=== PATIENT | female | born 1930 | race Caucasian/White ===

== ENCOUNTER 2021-11-19 17:38 | Inpatient (IN) | payer MEDICARE, MEDICAID ==
[~2021-11-19] VITALS: Ht 165.1 cm; Wt 58.8 kg
[~2021-11-19 17:38] MED LIST: DIGITEK PO; DONETAB6 PO; HYDR-4833 PO; METF-370 PO; METO2.5T PO; POTA10TA51 PO; SPIR25TA8 PO; WARF3TAB22 PO
[2021-11-19] MEDS ORDERED: SUCCINYLCHOLINE CHLORIDE 20 MG/ML 10ML VIAL IV ONE ×2 (17:47→18:00)
[2021-11-19] MEDS ORDERED: MIDAZOLAM DRIP 50 mg/50mL 50 ML IV ONE (17:47)
[2021-11-19] MEDS ORDERED: MIDAZOLAM HCL 10 ML IV ONE (17:49)
[2021-11-19] MEDS: MIDAZOLAM DRIP 50 mg/50mL 50 ML IV SCH (17:59)
[2021-11-19] MEDS ORDERED: MIDAZOLAM HCL 5 MG/ML-1ML VIAL IV ONE (18:00)
[2021-11-19] MEDS: NOREPINEPHRINE 8 MG/250ML KIT 250 ML IV SCH (18:02)
[2021-11-19] MEDS ORDERED: NOREPINEPHRINE 8 MG/250ML KIT 250 ML IV ONE (18:03)
[2021-11-19 18:15] VITALS: BP 51/32
[2021-11-19] MEDS ORDERED: PIPERACILLIN-TAZOB 3.375GM 100 ML IV ONE (19:00)
[2021-11-19] MEDS ORDERED: HYDROCORTISONE SOD SUCC 100 MG/2ML INJ VIAL IV ONE (19:00)
[2021-11-19] MEDS ORDERED: VANCOMYCIN PER PHARMACY 0 MG IV SCH (19:00)
[2021-11-19 19:32] LABS: Urine Bacteria NONE SEEN /hpf (None Seen); Urine Blood Negative /uL (Negative); Urine Hyaline Cast FEW /lpf (0 - 2); Urine Specific Gravity 1.019 (1.001-1.035); Urine WBC 1 /hpf (0 - 5)
[2021-11-19 19:50] LABS: Basophils # (auto) 0.2 10 ^3/uL (0-0.2); Basophils % (auto) 1.8 % (0.0-2.0); Eosinophils # (auto) 0 10 ^3/uL (0-0.8); Eosinophils % (auto) 0.4 % (0.0-7.0); Lymphocytes # (auto) 0.6 10 ^3/uL (0.4-5.4); Lymphocytes % (auto) 5.2 % (10.0-50.0); Mean Corpuscular Hemoglobin 31.3 pg (28.0-32.0); Mean Corpuscular Hgb Conc. 32.7 g/dL (32.0-36.0); Mean Corpuscular Volume 95.5 fL (80.0-100.0); Monocytes # (auto) 0.6 10 ^3/uL (0-1.3); Monocytes % (auto) 5.1 % (0.0-12.0); Neutrophils % (auto) 87.5 % (37.0-80.0); Nucleated Red Blood Cells % 0.1 %; Red Blood Cells 5.12 10^6/uL (4.0-5.20); Red Cell Distribution Width 15.5 % (11.8-14.3); White Blood Cell 11.4 10^3/uL (4.4-10.8)
[2021-11-19] MEDS ORDERED: VANCOMYCIN 1GM/250ML 250 ML IV ONE (20:00)
[2021-11-19 20:03] VITALS: BP 118/79
[2021-11-19 20:03] LABS: INR 1.2 (0.9-1.15); Partial Thromboplastin Time 20.2 sec (23.6-33.0)
[2021-11-19 20:07] LABS: Albumin 2.5 g/dL (3.4-5.0); BUN/Creatinine Ratio 43.8; Calcium 9.9 mg/dL (8.5-10.1); Magnesium 3.3 mg/dL (1.6-2.6); Potassium 3.7 mmol/L (3.5-5.1)
[2021-11-19 20:10] LABS: Total Protein 7.4 g/dL (6.4-8.2)
[2021-11-19 20:13] LABS: Lactic Acid w/Reflex 2.5 mmol/L (0.4-2.0)
[2021-11-19] MEDS ORDERED: HEPARIN DRIP/D5W 100UNITS/ML 250 ML IV SCH (20:45)
[2021-11-19] MEDS ORDERED: HEPARIN SODIUM (PORCINE) 5000 UNITS/ML 1ML VIAL IV ONE (20:45)
[2021-11-19] MEDS ORDERED: SODIUM CHLORIDE 0.9% 500 ML IV ONE (21:00)
[2021-11-19] MEDS ORDERED: SODIUM CHLORIDE 0.9% 1,000 ML IV ONE (21:00)
[2021-11-19] MEDS ORDERED: ACETAMINOPHEN 325 MG TAB PO PRN (21:15)
[2021-11-19] MEDS ORDERED: ONDANSETRON HCL 4 MG/2 ML VIAL IV PRN (21:15)
[2021-11-19] MEDS ORDERED: NITROGLYCERIN 0.4 MG SL TAB SL PRN (21:15)
[2021-11-19] MEDS ORDERED: DEXTROSE (50%) 50ML SYRG IV PRN (21:15)
[2021-11-19] MEDS ORDERED: MORPHINE SULFATE INJ 2 MG/ml SYRG IV PRN (21:15)
[2021-11-19 21:19] LABS: Cholesterol 201 mg/dL (< 200); Triglycerides 237 mg/dL (< 150)
[2021-11-19 21:22] LABS: HDL Cholesterol 21 mg/dL (40-59); LDL Cholesterol 158 mg/dL (< 100)
[2021-11-19 21:51] VITALS: BP 137/78
[2021-11-19] MEDS: SOD CHL 0.45% 1,000 ML IV SCH (22:39)
[2021-11-20] VITALS (86 sets, daily range): BP systolic 76–131; BP diastolic 48–103
[2021-11-20] MEDS: ACCU-CHEK COMFORT CURVE STRIP VI SCH ×5 (00:28→23:57)
[2021-11-20] MEDS: InsuLIN REG 1unit/0.01ml Soln (100units/ml) SC SCH ×5 (00:28→23:58)
[2021-11-20] MEDS: MIDAZOLAM DRIP 50 mg/50mL 50 ML IV SCH (03:23)
[2021-11-20 05:39] LABS: Basophils # (auto) 0 10 ^3/uL (0-0.2); Basophils % (auto) 0.3 % (0.0-2.0); Eosinophils # (auto) 0 10 ^3/uL (0-0.8); Hematocrit 49.4 % (36.0-46.0); Lymphocytes # (auto) 0.5 10 ^3/uL (0.4-5.4); Lymphocytes % (auto) 3.7 % (10.0-50.0); Mean Corpuscular Hemoglobin 31.5 pg (28.0-32.0); Mean Corpuscular Hgb Conc. 32.4 g/dL (32.0-36.0); Mean Corpuscular Volume 97.3 fL (80.0-100.0); Monocytes # (auto) 0.4 10 ^3/uL (0-1.3); Monocytes % (auto) 2.9 % (0.0-12.0); Neutrophils # (auto) 12.4 10 ^3/uL (1.6-8.6); Neutrophils % (auto) 93.1 % (37.0-80.0); Nucleated Red Blood Cells % 0.2 %; Red Blood Cells 5.08 10^6/uL (4.0-5.20); Red Cell Distribution Width 15.3 % (11.8-14.3); White Blood Cell 13.3 10^3/uL (4.4-10.8)
[2021-11-20 05:55] LABS: Albumin 2.4 g/dL (3.4-5.0); BUN/Creatinine Ratio 41.3; Calcium 9.4 mg/dL (8.5-10.1); Potassium 3.5 mmol/L (3.5-5.1)
[2021-11-20 05:57] LABS: Bilirubin, Total 0.9 mg/dL (0.2-1.0); Total Protein 7.1 g/dL (6.4-8.2)
[2021-11-20 06:07] LABS: INR 1.27 (0.9-1.15)
[2021-11-20 06:15] LABS: Partial Thromboplastin Time 120.6 sec (23.6-33.0)
[2021-11-20] MEDS: NOREPINEPHRINE 8 MG/250ML KIT 250 ML IV SCH ×3 (07:44→23:01)
[2021-11-20] MEDS ORDERED: cefTRIAXone 1GM/50ML D5W 50 ML IV SCH (09:00)
[2021-11-20] MEDS: PANTOPRAZOLE 40 MG/10 ML VIAL INJ IV SCH (11:17)
[2021-11-20] MEDS: SOD CHL 0.45% 1,000 ML IV SCH (11:21)
[2021-11-20] MEDS: PIPERACILLIN-TAZOB 2.25GM 50 ML IV SCH ×3 (12:37→23:41)
[2021-11-20] MEDS: LACTULOSE 20Gm/30ML SOLN PO SCH ×3 (12:37→23:40)
[2021-11-21] VITALS (101 sets, daily range): BP systolic 75–154; BP diastolic 46–96
[2021-11-21] MEDS: NOREPINEPHRINE 8 MG/250ML KIT 250 ML IV SCH ×5 (00:22→22:33)
[2021-11-21] MEDS: SOD CHL 0.45% 1,000 ML IV SCH ×2 (01:56→16:09)
[2021-11-21] MEDS: LACTULOSE 20Gm/30ML SOLN PO SCH ×3 (05:07→17:29)
[2021-11-21] MEDS: ACCU-CHEK COMFORT CURVE STRIP VI SCH ×3 (05:08→17:08)
[2021-11-21] MEDS: PIPERACILLIN-TAZOB 2.25GM 50 ML IV SCH ×3 (05:08→17:29)
[2021-11-21] MEDS: InsuLIN REG 1unit/0.01ml Soln (100units/ml) SC SCH ×3 (05:09→17:09)
[2021-11-21 08:22] LABS: Basophils # (auto) 0.1 10 ^3/uL (0-0.2); Basophils % (auto) 0.5 % (0.0-2.0); Eosinophils # (auto) 0 10 ^3/uL (0-0.8); Eosinophils % (auto) 0.2 % (0.0-7.0); Hematocrit 45.1 % (36.0-46.0); Hemoglobin 14.8 g/dL (12.2-16.2); Lymphocytes % (auto) 7.7 % (10.0-50.0); Mean Corpuscular Hemoglobin 31.5 pg (28.0-32.0); Mean Corpuscular Hgb Conc. 32.8 g/dL (32.0-36.0); Mean Corpuscular Volume 95.9 fL (80.0-100.0); Monocytes # (auto) 0.8 10 ^3/uL (0-1.3); Monocytes % (auto) 6.1 % (0.0-12.0); Neutrophils # (auto) 10.7 10 ^3/uL (1.6-8.6); Neutrophils % (auto) 85.5 % (37.0-80.0); Nucleated Red Blood Cells % 0.2 %; Red Blood Cells 4.71 10^6/uL (4.0-5.20); Red Cell Distribution Width 15.1 % (11.8-14.3); White Blood Cell 12.5 10^3/uL (4.4-10.8)
[2021-11-21 08:41] LABS: Calcium 8.9 mg/dL (8.5-10.1); Potassium 3.1 mmol/L (3.5-5.1)
[2021-11-21 08:44] LABS: BUN/Creatinine Ratio 42.6
[2021-11-21] MEDS: PANTOPRAZOLE 40 MG/10 ML VIAL INJ IV SCH (09:19)
[2021-11-21] MEDS: ENOXAPARIN SOD 60 MG/0.6 ML SYRINGE SC SCH (09:20)
[2021-11-21] MEDS: MIDAZOLAM DRIP 50 mg/50mL 50 ML IV SCH (09:21)
[2021-11-21] MEDS: POTASSIUM CHL 20MEQ/100ML 100 ML IV SCH ×2 (10:13→12:10)
[2021-11-21] MEDS ORDERED: TPN PER PHARMACY 0 ML IV SCH (11:00)
[2021-11-21 11:19] LABS: Magnesium 2.7 mg/dL (1.6-2.6)
[2021-11-21 11:21] LABS: Phosphorus 5.1 mg/dL (2.5-4.90)
[2021-11-21] MEDS: VASOPRESSIN 50 UNITS in D5W 5% 247.5 ML IV SCH (14:15)
[2021-11-21] MEDS ORDERED: AMINO ACID INFUSION IN D10W 1,000 ML IV NR (20:00)
[2021-11-22] VITALS (108 sets, daily range): BP systolic 84–135; BP diastolic 48–99
[2021-11-22] MEDS ORDERED: DEXTROSE (50%) 50ML SYRG IV SCH
[2021-11-22] MEDS: PIPERACILLIN-TAZOB 2.25GM 50 ML IV SCH ×4 (00:04→22:14)
[2021-11-22] MEDS: LACTULOSE 20Gm/30ML SOLN PO SCH ×3 (00:04→11:17)
[2021-11-22] MEDS: ACCU-CHEK COMFORT CURVE STRIP VI SCH ×6 (00:16→17:16)
[2021-11-22] MEDS: InsuLIN REG 1unit/0.01ml Soln (100units/ml) SC SCH ×7 (00:22→17:17)
[2021-11-22] MEDS: NOREPINEPHRINE 8 MG/250ML KIT 250 ML IV SCH ×4 (03:34→22:04)
[2021-11-22 05:34] LABS: Basophils # (auto) 0.1 10 ^3/uL (0-0.2); Basophils % (auto) 1.4 % (0.0-2.0); Eosinophils # (auto) 0 10 ^3/uL (0-0.8); Eosinophils % (auto) 0.4 % (0.0-7.0); Hematocrit 42.3 % (36.0-46.0); Hemoglobin 14.1 g/dL (12.2-16.2); Lymphocytes # (auto) 0.7 10 ^3/uL (0.4-5.4); Lymphocytes % (auto) 8.4 % (10.0-50.0); Mean Corpuscular Hemoglobin 31.9 pg (28.0-32.0); Mean Corpuscular Hgb Conc. 33.4 g/dL (32.0-36.0); Mean Corpuscular Volume 95.3 fL (80.0-100.0); Monocytes # (auto) 0.5 10 ^3/uL (0-1.3); Monocytes % (auto) 5.4 % (0.0-12.0); Neutrophils # (auto) 7.1 10 ^3/uL (1.6-8.6); Neutrophils % (auto) 84.4 % (37.0-80.0); Nucleated Red Blood Cells % 0.1 %; Red Blood Cells 4.43 10^6/uL (4.0-5.20); Red Cell Distribution Width 15.2 % (11.8-14.3); White Blood Cell 8.4 10^3/uL (4.4-10.8)
[2021-11-22] MEDS: SOD CHL 0.45% 1,000 ML IV SCH (06:01)
[2021-11-22 06:27] LABS: Albumin 1.8 g/dL (3.4-5.0); Calcium 8.4 mg/dL (8.5-10.1); Magnesium 2.4 mg/dL (1.6-2.6)
[2021-11-22 06:33] LABS: BUN/Creatinine Ratio 39.9; Bilirubin, Total 0.7 mg/dL (0.2-1.0); Phosphorus 3.2 mg/dL (2.5-4.90)
[2021-11-22] MEDS: POTASSIUM CHL 20MEQ/100ML 100 ML IV SCH ×2 (07:33→09:12)
[2021-11-22] MEDS: PANTOPRAZOLE 40 MG/10 ML VIAL INJ IV SCH (09:11)
[2021-11-22] MEDS: ENOXAPARIN SOD 60 MG/0.6 ML SYRINGE SC SCH (09:12)
[2021-11-22] MEDS ORDERED: POTASSIUM CHL 20MEQ/100ML 100 ML IV ONE (12:00)
[2021-11-22] MEDS: FREE WATER GT SCH ×3 (13:52→22:14)
[2021-11-22] MEDS: VASOPRESSIN 50 UNITS in D5W 5% 247.5 ML IV SCH (14:15)
[2021-11-22] MEDS: MIDAZOLAM DRIP 50 mg/50mL 50 ML IV SCH (18:00)
[2021-11-22] MEDS ORDERED: TPN PER PHARMACY IV NR ×19 (20:00)
[2021-11-23] VITALS (101 sets, daily range): BP systolic 83–133; BP diastolic 53–100
[2021-11-23] MEDS: ACCU-CHEK COMFORT CURVE STRIP VI SCH ×4 (01:43→18:01)
[2021-11-23] MEDS: InsuLIN REG 1unit/0.01ml Soln (100units/ml) SC SCH ×4 (01:43→18:16)
[2021-11-23] MEDS: FREE WATER GT SCH ×6 (05:31→22:00)
[2021-11-23 06:34] LABS: Basophils # (auto) 0 10 ^3/uL (0-0.2); Basophils % (auto) 0.5 % (0.0-2.0); Eosinophils # (auto) 0.1 10 ^3/uL (0-0.8); Eosinophils % (auto) 0.8 % (0.0-7.0); Hematocrit 39.4 % (36.0-46.0); Hemoglobin 13.5 g/dL (12.2-16.2); Lymphocytes # (auto) 0.6 10 ^3/uL (0.4-5.4); Mean Corpuscular Hemoglobin 32.4 pg (28.0-32.0); Mean Corpuscular Hgb Conc. 34.3 g/dL (32.0-36.0); Mean Corpuscular Volume 94.5 fL (80.0-100.0); Monocytes # (auto) 0.3 10 ^3/uL (0-1.3); Monocytes % (auto) 4.1 % (0.0-12.0); Neutrophils # (auto) 6.9 10 ^3/uL (1.6-8.6); Neutrophils % (auto) 87.6 % (37.0-80.0); Nucleated Red Blood Cells % 0.1 %; Red Blood Cells 4.17 10^6/uL (4.0-5.20); Red Cell Distribution Width 15.1 % (11.8-14.3); White Blood Cell 7.8 10^3/uL (4.4-10.8)
[2021-11-23 06:45] LABS: Albumin 1.7 g/dL (3.4-5.0); BUN/Creatinine Ratio 45.7; Calcium 8.3 mg/dL (8.5-10.1); Magnesium 1.9 mg/dL (1.6-2.6)
[2021-11-23 06:47] LABS: Bilirubin, Total 0.6 mg/dL (0.2-1.0)
[2021-11-23 06:50] LABS: Potassium 2.8 mmol/L (3.5-5.1)
[2021-11-23] MEDS: PIPERACILLIN-TAZOB 2.25GM 50 ML IV SCH ×3 (07:53→20:46)
[2021-11-23] MEDS: SOD CHL 0.45% 1,000 ML IV SCH ×2 (07:53→11:00)
[2021-11-23] MEDS ORDERED: POTASSIUM CHL 20MEQ/100ML 100 ML IV SCH ×2 (09:00→13:00)
[2021-11-23] MEDS: PANTOPRAZOLE 40 MG/10 ML VIAL INJ IV SCH (09:24)
[2021-11-23] MEDS: POTASSIUM CHL 20MEQ/100ML 100 ML IV SCH ×2 (09:24→13:35)
[2021-11-23] MEDS: ENOXAPARIN SOD 60 MG/0.6 ML SYRINGE SC SCH (09:24)
[2021-11-23] MEDS: FLUCONAZOLE 200MG/100ML 100 ML IV SCH ×2 (09:52→12:36)
[2021-11-23] MEDS ORDERED: POTASSIUM CHLORIDE 40 MEQ in SOD CHL 0.45% 1,000 ML IV SCH (10:45)
[2021-11-23] MEDS: NOREPINEPHRINE 8 MG/250ML KIT 250 ML IV SCH (13:17)
[2021-11-23] MEDS: VASOPRESSIN 50 UNITS in D5W 5% 247.5 ML IV SCH (14:15)
[2021-11-23] MEDS ORDERED: POTASSIUM PHOSPHATE 22 MEQ in SODIUM CHL 0.9% 100 ML IV ONE (15:00)
[2021-11-23] MEDS: MIDAZOLAM DRIP 50 mg/50mL 50 ML IV SCH (18:00)
[2021-11-23] MEDS ORDERED: TPN PER PHARMACY IV NR ×10 (20:00)
[2021-11-24] VITALS (98 sets, daily range): BP systolic 78–126; BP diastolic 50–92
[2021-11-24] MEDS: SOD CHL 0.45% 1,000 ML IV SCH ×3 (00:20→17:58)
[2021-11-24] MEDS: ACCU-CHEK COMFORT CURVE STRIP VI SCH ×4 (01:37→17:37)
[2021-11-24] MEDS: InsuLIN REG 1unit/0.01ml Soln (100units/ml) SC SCH ×4 (01:59→17:58)
[2021-11-24] MEDS: FREE WATER GT SCH ×6 (02:03→22:22)
[2021-11-24 05:29] LABS: Potassium 3.3 mmol/L (3.5-5.1)
[2021-11-24 05:45] LABS: Albumin 1.5 g/dL (3.4-5.0); BUN/Creatinine Ratio 46.8; Bilirubin, Total 0.4 mg/dL (0.2-1.0); Calcium 7.7 mg/dL (8.5-10.1); Magnesium 1.8 mg/dL (1.6-2.6); Phosphorus 2.2 mg/dL (2.5-4.90); Total Protein 5.3 g/dL (6.4-8.2)
[2021-11-24] MEDS: PIPERACILLIN-TAZOB 2.25GM 50 ML IV SCH ×3 (07:54→22:22)
[2021-11-24] MEDS: FLUCONAZOLE 200MG/100ML 100 ML IV SCH ×2 (09:20→10:33)
[2021-11-24] MEDS: POLYETHYLENE GLYCOL 17 GM PWDR PO SCH (09:21)
[2021-11-24] MEDS: ENOXAPARIN SOD 60 MG/0.6 ML SYRINGE SC SCH (09:21)
[2021-11-24] MEDS: PANTOPRAZOLE 40 MG/10 ML VIAL INJ IV SCH (09:21)
[2021-11-24] MEDS ORDERED: POTASSIUM PHOSPHATE 22 MEQ in SODIUM CHL 0.9% 100 ML IV ONE (10:30)
[2021-11-24] MEDS: VASOPRESSIN 50 UNITS in D5W 5% 247.5 ML IV SCH (13:34)
[2021-11-24] MEDS ORDERED: FUROSEMIDE 20 MG/2 ML VIAL IV ONE (16:00)
[2021-11-24] MEDS ORDERED: POTASSIUM EFFERVESENT TAB 25 MEQ PO ONE (16:00)
[2021-11-24] MEDS: MIDAZOLAM DRIP 50 mg/50mL 50 ML IV SCH (17:31)
[2021-11-24] MEDS: NOREPINEPHRINE 8 MG/250ML KIT 250 ML IV SCH (18:15)
[2021-11-24] MEDS ORDERED: TPN PER PHARMACY IV NR ×10 (20:00)
[2021-11-25] VITALS (90 sets, daily range): BP systolic 71–127; BP diastolic 42–79
[2021-11-25] MEDS: PIPERACILLIN-TAZOB 2.25GM 50 ML IV SCH ×5 (02:00→21:24)
[2021-11-25] MEDS: FREE WATER GT SCH ×4 (02:00→17:23)
[2021-11-25 05:16] LABS: Basophils # (auto) 0 10 ^3/uL (0-0.2); Basophils % (auto) 0.4 % (0.0-2.0); Eosinophils # (auto) 0.1 10 ^3/uL (0-0.8); Eosinophils % (auto) 1.2 % (0.0-7.0); Hematocrit 40.3 % (36.0-46.0); Hemoglobin 13.6 g/dL (12.2-16.2); Lymphocytes # (auto) 0.9 10 ^3/uL (0.4-5.4); Lymphocytes % (auto) 10.6 % (10.0-50.0); Mean Corpuscular Hemoglobin 32.3 pg (28.0-32.0); Mean Corpuscular Hgb Conc. 33.8 g/dL (32.0-36.0); Mean Corpuscular Volume 95.6 fL (80.0-100.0); Monocytes # (auto) 0.7 10 ^3/uL (0-1.3); Monocytes % (auto) 7.7 % (0.0-12.0); Neutrophils % (auto) 80.1 % (37.0-80.0); Nucleated Red Blood Cells % 0.1 %; Red Blood Cells 4.22 10^6/uL (4.0-5.20); Red Cell Distribution Width 15.5 % (11.8-14.3); White Blood Cell 8.7 10^3/uL (4.4-10.8)
[2021-11-25 05:30] LABS: Albumin 1.5 g/dL (3.4-5.0); Calcium 7.9 mg/dL (8.5-10.1); Potassium 3.7 mmol/L (3.5-5.1)
[2021-11-25 05:33] LABS: BUN/Creatinine Ratio 40.5; Bilirubin, Total 0.5 mg/dL (0.2-1.0); Phosphorus 2.9 mg/dL (2.5-4.90); Total Protein 5.9 g/dL (6.4-8.2)
[2021-11-25] MEDS: ACCU-CHEK COMFORT CURVE STRIP VI SCH ×4 (06:57→17:36)
[2021-11-25] MEDS: InsuLIN REG 1unit/0.01ml Soln (100units/ml) SC SCH ×4 (07:00→17:37)
[2021-11-25] MEDS: SOD CHL 0.45% 1,000 ML IV SCH (07:46)
[2021-11-25] MEDS: PANTOPRAZOLE 40 MG/10 ML VIAL INJ IV SCH (09:48)
[2021-11-25] MEDS: FLUCONAZOLE 200MG/100ML 100 ML IV SCH ×2 (09:48→12:14)
[2021-11-25] MEDS: POLYETHYLENE GLYCOL 17 GM PWDR PO SCH (10:00)
[2021-11-25] MEDS ORDERED: EPINEPHrine HCL 0.5 ML NEB ONE (12:53)
[2021-11-25] MEDS ORDERED: EPINEPHrine HCL 0.5 ML NEB NEB ONE (13:00)
[2021-11-25] MEDS ORDERED: FUROSEMIDE 20 MG/2 ML VIAL ONE (13:15)
[2021-11-25] MEDS ORDERED: FUROSEMIDE 20 MG/2 ML VIAL IV ONE (13:30)
[2021-11-25 13:49] LABS: INR 0.96 (0.9-1.15)
[2021-11-25] MEDS: VASOPRESSIN 50 UNITS in D5W 5% 247.5 ML IV SCH (14:15)
[2021-11-25] MEDS ORDERED: LIDOCAINE 1% (LOCAL ANESTH.) PF 5ml SDV ID ONE (17:15)
[2021-11-25] MEDS: MIDAZOLAM DRIP 50 mg/50mL 50 ML IV SCH (17:26)
[2021-11-25] MEDS: NOREPINEPHRINE 8 MG/250ML KIT 250 ML IV SCH (17:33)
[2021-11-25] MEDS ORDERED: BUDESONIDE (INHALATION) 0.5 MG/2 ML NEB NEB ONE (19:00)
[2021-11-25] MEDS ORDERED: IPRATROPIUM BROM 0.5 MG/2.5ML INH SOL NEB ONE (19:00)
[2021-11-25] MEDS ORDERED: TPN PER PHARMACY IV NR ×11 (20:00)
[2021-11-25] MEDS: SODIUM CHLOR 0.9% PF (SALINE LOCK) 10ML VIAL/SYR IV SCH (21:17)
[2021-11-25] MEDS ORDERED: IPRATROPIUM BROM 0.5 MG/2.5ML INH SOL NEB SCH (22:00)
[2021-11-25] MEDS: IPRATROPIUM BROM 0.5 MG/2.5ML INH SOL NEB PRN (22:50)
[2021-11-25] MEDS: ALBUTEROL SULF 2.5 MG/0.5ML(0.5%) NEB SOLN NEB PRN (22:50)
[2021-11-25] MEDS: BUDESONIDE (INHALATION) 0.5 MG/2 ML NEB NEB SCH (22:51)
[2021-11-26] VITALS (80 sets, daily range): BP systolic 62–121; BP diastolic 28–78
[2021-11-26] MEDS: InsuLIN REG 1unit/0.01ml Soln (100units/ml) SC SCH ×4 (00:45→18:42)
[2021-11-26] MEDS: ACCU-CHEK COMFORT CURVE STRIP VI SCH ×4 (00:45→18:42)
[2021-11-26] MEDS: PIPERACILLIN-TAZOB 2.25GM 50 ML IV SCH ×4 (02:17→20:26)
[2021-11-26 04:59] LABS: Basophils # (auto) 0 10 ^3/uL (0-0.2); Basophils % (auto) 0.4 % (0.0-2.0); Eosinophils # (auto) 0.1 10 ^3/uL (0-0.8); Eosinophils % (auto) 0.9 % (0.0-7.0); Hematocrit 40.9 % (36.0-46.0); Hemoglobin 13.7 g/dL (12.2-16.2); Lymphocytes # (auto) 0.8 10 ^3/uL (0.4-5.4); Lymphocytes % (auto) 9.6 % (10.0-50.0); Mean Corpuscular Hemoglobin 32.1 pg (28.0-32.0); Mean Corpuscular Hgb Conc. 33.5 g/dL (32.0-36.0); Mean Corpuscular Volume 95.9 fL (80.0-100.0); Monocytes # (auto) 0.6 10 ^3/uL (0-1.3); Neutrophils % (auto) 82.1 % (37.0-80.0); Nucleated Red Blood Cells % 0.2 %; Red Blood Cells 4.27 10^6/uL (4.0-5.20); Red Cell Distribution Width 15.4 % (11.8-14.3); White Blood Cell 8.5 10^3/uL (4.4-10.8)
[2021-11-26 05:17] LABS: Albumin 1.4 g/dL (3.4-5.0); Calcium 7.7 mg/dL (8.5-10.1); Magnesium 1.8 mg/dL (1.6-2.6); Potassium 3.3 mmol/L (3.5-5.1)
[2021-11-26 05:20] LABS: BUN/Creatinine Ratio 37.2; Bilirubin, Total 0.6 mg/dL (0.2-1.0); Phosphorus 3.2 mg/dL (2.5-4.90); Total Protein 6.2 g/dL (6.4-8.2)
[2021-11-26] MEDS: FREE WATER GT SCH ×2 (06:00)
[2021-11-26] MEDS: NOREPINEPHRINE 8 MG/250ML KIT 250 ML IV SCH ×2 (08:45→18:42)
[2021-11-26] MEDS: BUDESONIDE (INHALATION) 0.5 MG/2 ML NEB NEB SCH ×2 (10:00→22:31)
[2021-11-26] MEDS: SODIUM CHLOR 0.9% PF (SALINE LOCK) 10ML VIAL/SYR IV SCH ×2 (11:08→22:06)
[2021-11-26] MEDS: PANTOPRAZOLE 40 MG/10 ML VIAL INJ IV SCH (11:08)
[2021-11-26] MEDS: POTASSIUM CHL 20MEQ/100ML 100 ML IV SCH ×2 (11:28→13:05)
[2021-11-26] MEDS: FLUCONAZOLE 200MG/100ML 100 ML IV SCH ×2 (11:28→12:16)
[2021-11-26] MEDS: VASOPRESSIN 50 UNITS in D5W 5% 247.5 ML IV SCH (14:15)
[2021-11-26] MEDS ORDERED: TPN PER PHARMACY IV NR ×11 (20:00)
[2021-11-26] MEDS: ALBUTEROL SULF 2.5 MG/0.5ML(0.5%) NEB SOLN NEB PRN (22:32)
[2021-11-26] MEDS: IPRATROPIUM BROM 0.5 MG/2.5ML INH SOL NEB PRN (22:32)
[2021-11-27] VITALS (89 sets, daily range): BP systolic 76–126; BP diastolic 45–80
[2021-11-27] MEDS: ACCU-CHEK COMFORT CURVE STRIP VI SCH ×4 (00:19→18:35)
[2021-11-27] MEDS: InsuLIN REG 1unit/0.01ml Soln (100units/ml) SC SCH ×4 (00:21→18:35)
[2021-11-27] MEDS: NOREPINEPHRINE 8 MG/250ML KIT 250 ML IV SCH ×2 (00:50→18:45)
[2021-11-27] MEDS: PIPERACILLIN-TAZOB 2.25GM 50 ML IV SCH ×4 (01:59→20:05)
[2021-11-27 06:02] LABS: Basophils # (auto) 0 10 ^3/uL (0-0.2); Basophils % (auto) 0.6 % (0.0-2.0); Eosinophils # (auto) 0.1 10 ^3/uL (0-0.8); Eosinophils % (auto) 1.3 % (0.0-7.0); Hematocrit 33.3 % (36.0-46.0); Hemoglobin 11.6 g/dL (12.2-16.2); Lymphocytes # (auto) 0.8 10 ^3/uL (0.4-5.4); Mean Corpuscular Hemoglobin 32.4 pg (28.0-32.0); Mean Corpuscular Volume 92.7 fL (80.0-100.0); Monocytes # (auto) 0.5 10 ^3/uL (0-1.3); Monocytes % (auto) 6.5 % (0.0-12.0); Neutrophils # (auto) 6.4 10 ^3/uL (1.6-8.6); Neutrophils % (auto) 81.6 % (37.0-80.0); Nucleated Red Blood Cells % 0.1 %; Red Blood Cells 3.59 10^6/uL (4.0-5.20); Red Cell Distribution Width 15.1 % (11.8-14.3); White Blood Cell 7.9 10^3/uL (4.4-10.8)
[2021-11-27 06:21] LABS: Potassium 3.2 mmol/L (3.5-5.1)
[2021-11-27 06:33] LABS: Albumin 1.4 g/dL (3.4-5.0); BUN/Creatinine Ratio 44.2; Bilirubin, Total 0.7 mg/dL (0.2-1.0); Phosphorus 3.6 mg/dL (2.5-4.90); Total Protein 5.5 g/dL (6.4-8.2)
[2021-11-27] MEDS ORDERED: POTASSIUM CHL 20MEQ/100ML 100 ML IV SCH (08:30)
[2021-11-27] MEDS: POTASSIUM CHL 20MEQ/100ML 100 ML IV SCH ×2 (11:05→13:23)
[2021-11-27] MEDS: PANTOPRAZOLE 40 MG/10 ML VIAL INJ IV SCH (11:06)
[2021-11-27] MEDS: FLUCONAZOLE 200MG/100ML 100 ML IV SCH ×2 (11:06→12:49)
[2021-11-27] MEDS: SODIUM CHLOR 0.9% PF (SALINE LOCK) 10ML VIAL/SYR IV SCH ×2 (11:07→22:00)
[2021-11-27] MEDS ORDERED: GASTROGRAFIN 120 ML SOL ONE (13:01)
[2021-11-27] MEDS: VASOPRESSIN 50 UNITS in D5W 5% 247.5 ML IV SCH (14:15)
[2021-11-27] MEDS: BUDESONIDE (INHALATION) 0.5 MG/2 ML NEB NEB SCH ×2 (16:56→18:29)
[2021-11-27] MEDS ORDERED: TPN PER PHARMACY IV NR ×12 (20:00)
[2021-11-28] VITALS (88 sets, daily range): BP systolic 74–140; BP diastolic 40–84
[2021-11-28] MEDS: ACCU-CHEK COMFORT CURVE STRIP VI SCH ×5 (00:15→23:42)
[2021-11-28] MEDS: InsuLIN REG 1unit/0.01ml Soln (100units/ml) SC SCH ×5 (00:15→23:41)
[2021-11-28] MEDS: PIPERACILLIN-TAZOB 2.25GM 50 ML IV SCH ×4 (01:53→20:30)
[2021-11-28 05:41] LABS: Albumin 1.6 g/dL (3.4-5.0); Calcium 8.7 mg/dL (8.5-10.1); Potassium 4.1 mmol/L (3.5-5.1)
[2021-11-28 05:45] LABS: Bilirubin, Total 0.6 mg/dL (0.2-1.0); Phosphorus 3.5 mg/dL (2.5-4.90); Total Protein 6.2 g/dL (6.4-8.2)
[2021-11-28 05:46] LABS: Basophils # (auto) 0.1 10 ^3/uL (0-0.2); Basophils % (auto) 0.7 % (0.0-2.0); Eosinophils # (auto) 0.1 10 ^3/uL (0-0.8); Eosinophils % (auto) 1.8 % (0.0-7.0); Hematocrit 38.5 % (36.0-46.0); Hemoglobin 12.8 g/dL (12.2-16.2); Lymphocytes # (auto) 0.9 10 ^3/uL (0.4-5.4); Lymphocytes % (auto) 11.8 % (10.0-50.0); Mean Corpuscular Hemoglobin 31.5 pg (28.0-32.0); Mean Corpuscular Hgb Conc. 33.2 g/dL (32.0-36.0); Mean Corpuscular Volume 94.9 fL (80.0-100.0); Monocytes # (auto) 0.5 10 ^3/uL (0-1.3); Monocytes % (auto) 6.7 % (0.0-12.0); Nucleated Red Blood Cells % 0.1 %; Red Blood Cells 4.06 10^6/uL (4.0-5.20); Red Cell Distribution Width 15.7 % (11.8-14.3); White Blood Cell 7.7 10^3/uL (4.4-10.8)
[2021-11-28] MEDS: SODIUM CHLOR 0.9% PF (SALINE LOCK) 10ML VIAL/SYR IV SCH ×2 (08:47→21:18)
[2021-11-28] MEDS: PANTOPRAZOLE 40 MG/10 ML VIAL INJ IV SCH (08:47)
[2021-11-28] MEDS: FLUCONAZOLE 200MG/100ML 100 ML IV SCH ×2 (09:04→11:00)
[2021-11-28] MEDS: BUDESONIDE (INHALATION) 0.5 MG/2 ML NEB NEB SCH ×2 (10:13→22:18)
[2021-11-28] MEDS: ALBUTEROL SULF 2.5 MG/0.5ML(0.5%) NEB SOLN NEB PRN (10:13)
[2021-11-28] MEDS ORDERED: METOCLOPRAMIDE HCL 5MG/ml INJ 2ml VIAL IV ONE (11:45)
[2021-11-28] MEDS: VASOPRESSIN 50 UNITS in D5W 5% 247.5 ML IV SCH (14:15)
[2021-11-28] MEDS: NOREPINEPHRINE 8 MG/250ML KIT 250 ML IV SCH (14:31)
[2021-11-28] MEDS ORDERED: TPN PER PHARMACY IV NR ×11 (20:00)
[2021-11-28] MEDS: METOCLOPRAMIDE HCL 5MG/ml INJ 2ml VIAL IV SCH (21:18)
[2021-11-29] VITALS (74 sets, daily range): BP systolic 85–129; BP diastolic 51–87
[2021-11-29] MEDS: PIPERACILLIN-TAZOB 2.25GM 50 ML IV SCH ×4 (02:33→20:30)
[2021-11-29] MEDS: METOCLOPRAMIDE HCL 5MG/ml INJ 2ml VIAL IV SCH ×3 (05:22→21:19)
[2021-11-29 05:35] LABS: Albumin 1.4 g/dL (3.4-5.0); Calcium 8.4 mg/dL (8.5-10.1); Magnesium 2.3 mg/dL (1.6-2.6); Potassium 3.7 mmol/L (3.5-5.1)
[2021-11-29 05:39] LABS: BUN/Creatinine Ratio 52.9; Bilirubin, Total 0.6 mg/dL (0.2-1.0); Phosphorus 3.8 mg/dL (2.5-4.90); Total Protein 6.2 g/dL (6.4-8.2)
[2021-11-29] MEDS: InsuLIN REG 1unit/0.01ml Soln (100units/ml) SC SCH ×4 (06:13→23:37)
[2021-11-29] MEDS: ACCU-CHEK COMFORT CURVE STRIP VI SCH ×4 (06:15→23:37)
[2021-11-29] MEDS: BUDESONIDE (INHALATION) 0.5 MG/2 ML NEB NEB SCH ×2 (06:50→18:13)
[2021-11-29] MEDS: FLUCONAZOLE 200MG/100ML 100 ML IV SCH ×2 (12:19→13:05)
[2021-11-29] MEDS: SODIUM CHLOR 0.9% PF (SALINE LOCK) 10ML VIAL/SYR IV SCH ×2 (12:19→21:19)
[2021-11-29] MEDS: PANTOPRAZOLE 40 MG/10 ML VIAL INJ IV SCH (12:19)
[2021-11-29] MEDS: ENOXAPARIN SOD 40 MG/0.4 ML SYRINGE SC SCH (12:19)
[2021-11-29] MEDS: VASOPRESSIN 50 UNITS in D5W 5% 247.5 ML IV SCH (14:15)
[2021-11-29] MEDS: ALBUTEROL SULF 2.5 MG/0.5ML(0.5%) NEB SOLN NEB PRN (18:13)
[2021-11-29] MEDS: IPRATROPIUM BROM 0.5 MG/2.5ML INH SOL NEB PRN (18:13)
[2021-11-29] MEDS: NOREPINEPHRINE 8 MG/250ML KIT 250 ML IV SCH (18:15)
[2021-11-29] MEDS: TPN PER PHARMACY IV NR ×10 (20:32)
[2021-11-30] VITALS (18 sets, daily range): BP systolic 81–106; BP diastolic 45–71
[2021-11-30] MEDS: PIPERACILLIN-TAZOB 2.25GM 50 ML IV SCH ×4 (01:13→20:45)
[2021-11-30 05:25] LABS: Albumin 1.5 g/dL (3.4-5.0); Calcium 8.7 mg/dL (8.5-10.1); Magnesium 2.4 mg/dL (1.6-2.6)
[2021-11-30] MEDS: METOCLOPRAMIDE HCL 5MG/ml INJ 2ml VIAL IV SCH ×3 (05:27→20:45)
[2021-11-30 05:29] LABS: BUN/Creatinine Ratio 54.7; Bilirubin, Total 0.8 mg/dL (0.2-1.0); Phosphorus 4.6 mg/dL (2.5-4.90); Total Protein 6.1 g/dL (6.4-8.2)
[2021-11-30] MEDS: BUDESONIDE (INHALATION) 0.5 MG/2 ML NEB NEB SCH ×2 (05:58→17:45)
[2021-11-30] MEDS: ACCU-CHEK COMFORT CURVE STRIP VI SCH ×3 (06:01→17:13)
[2021-11-30] MEDS: InsuLIN REG 1unit/0.01ml Soln (100units/ml) SC SCH ×3 (06:01→17:29)
[2021-11-30] MEDS: PANTOPRAZOLE 40 MG/10 ML VIAL INJ IV SCH (09:03)
[2021-11-30] MEDS: ENOXAPARIN SOD 40 MG/0.4 ML SYRINGE SC SCH (09:03)
[2021-11-30] MEDS: FLUCONAZOLE 200MG/100ML 100 ML IV SCH ×2 (09:03→11:32)
[2021-11-30] MEDS: SODIUM CHLOR 0.9% PF (SALINE LOCK) 10ML VIAL/SYR IV SCH ×2 (09:03→20:45)
[2021-11-30] MEDS: VASOPRESSIN 50 UNITS in D5W 5% 247.5 ML IV SCH (13:50)
[2021-11-30] MEDS: IPRATROPIUM BROM 0.5 MG/2.5ML INH SOL NEB PRN (17:45)
[2021-11-30] MEDS: ALBUTEROL SULF 2.5 MG/0.5ML(0.5%) NEB SOLN NEB PRN (17:45)
[2021-11-30] MEDS: TPN PER PHARMACY IV NR ×30 (20:00→20:52)
[2021-12-01] MEDS: ACCU-CHEK COMFORT CURVE STRIP VI SCH ×4 (00:01→18:25)
[2021-12-01] MEDS: PIPERACILLIN-TAZOB 2.25GM 50 ML IV SCH ×4 (01:48→23:12)
[2021-12-01 05:00] VITALS: BP 119/67
[2021-12-01] MEDS: METOCLOPRAMIDE HCL 5MG/ml INJ 2ml VIAL IV SCH ×3 (05:25→23:13)
[2021-12-01] MEDS: InsuLIN REG 1unit/0.01ml Soln (100units/ml) SC SCH ×4 (05:26→18:00)
[2021-12-01 06:06] LABS: Albumin 1.5 g/dL (3.4-5.0); Magnesium 2.2 mg/dL (1.6-2.6); Potassium 4.3 mmol/L (3.5-5.1)
[2021-12-01] MEDS: BUDESONIDE (INHALATION) 0.5 MG/2 ML NEB NEB SCH ×2 (06:08→22:28)
[2021-12-01 06:10] LABS: BUN/Creatinine Ratio 47.3; Bilirubin, Total 0.9 mg/dL (0.2-1.0); Phosphorus 2.8 mg/dL (2.5-4.90); Total Protein 6.1 g/dL (6.4-8.2)
[2021-12-01 09:31] LABS: Folate (Folic Acid) 15.53 ng/mL (5.38-24)
[2021-12-01] MEDS: ENOXAPARIN SOD 40 MG/0.4 ML SYRINGE SC SCH (11:01)
[2021-12-01] MEDS: SODIUM CHLOR 0.9% PF (SALINE LOCK) 10ML VIAL/SYR IV SCH ×2 (11:01→23:13)
[2021-12-01] MEDS: PANTOPRAZOLE 40 MG/10 ML VIAL INJ IV SCH (11:01)
[2021-12-01 11:30] VITALS: BP 88/52
[2021-12-01 12:12] VITALS: BP 120/59
[2021-12-01] MEDS: FLUCONAZOLE 200MG/100ML 100 ML IV SCH ×2 (13:30→14:40)
[2021-12-01] MEDS: TPN PER PHARMACY IV NR ×10 (20:00)
[2021-12-01] MEDS: IPRATROPIUM BROM 0.5 MG/2.5ML INH SOL NEB PRN (22:28)
[2021-12-01] MEDS: ALBUTEROL SULF 2.5 MG/0.5ML(0.5%) NEB SOLN NEB PRN (22:28)
[2021-12-02] MEDS: InsuLIN REG 1unit/0.01ml Soln (100units/ml) SC SCH ×4 (00:43→18:17)
[2021-12-02] MEDS: ACCU-CHEK COMFORT CURVE STRIP VI SCH ×4 (00:44→18:00)
[2021-12-02] MEDS: PIPERACILLIN-TAZOB 2.25GM 50 ML IV SCH ×4 (02:54→20:27)
[2021-12-02] MEDS: METOCLOPRAMIDE HCL 5MG/ml INJ 2ml VIAL IV SCH ×3 (05:33→22:31)
[2021-12-02 06:24] LABS: Basophils # (auto) 0.1 10 ^3/uL (0-0.2); Basophils % (auto) 1.1 % (0.0-2.0); Eosinophils # (auto) 0.1 10 ^3/uL (0-0.8); Eosinophils % (auto) 1.4 % (0.0-7.0); Hematocrit 32.1 % (36.0-46.0); Hemoglobin 10.7 g/dL (12.2-16.2); Lymphocytes # (auto) 0.8 10 ^3/uL (0.4-5.4); Lymphocytes % (auto) 13.8 % (10.0-50.0); Mean Corpuscular Hemoglobin 31.5 pg (28.0-32.0); Mean Corpuscular Hgb Conc. 33.3 g/dL (32.0-36.0); Mean Corpuscular Volume 94.7 fL (80.0-100.0); Monocytes # (auto) 0.6 10 ^3/uL (0-1.3); Monocytes % (auto) 10.6 % (0.0-12.0); Neutrophils # (auto) 4.2 10 ^3/uL (1.6-8.6); Neutrophils % (auto) 73.1 % (37.0-80.0); Nucleated Red Blood Cells % 0.1 %; Red Blood Cells 3.39 10^6/uL (4.0-5.20); Red Cell Distribution Width 16.2 % (11.8-14.3); White Blood Cell 5.8 10^3/uL (4.4-10.8)
[2021-12-02 06:45] LABS: Albumin 1.5 g/dL (3.4-5.0); BUN/Creatinine Ratio 56.4; Calcium 9.3 mg/dL (8.5-10.1); Magnesium 2.4 mg/dL (1.6-2.6)
[2021-12-02 06:47] LABS: Bilirubin, Total 0.7 mg/dL (0.2-1.0); Total Protein 5.9 g/dL (6.4-8.2)
[2021-12-02 09:00] VITALS: BP 112/66
[2021-12-02] MEDS: BUDESONIDE (INHALATION) 0.5 MG/2 ML NEB NEB SCH ×2 (10:38→18:42)
[2021-12-02] MEDS ORDERED: Jevity 1.2 Cal/Fiber 1 Liter GT SCH (10:45)
[2021-12-02] MEDS: FLUCONAZOLE 200MG/100ML 100 ML IV SCH ×2 (11:04→12:08)
[2021-12-02] MEDS: SODIUM CHLOR 0.9% PF (SALINE LOCK) 10ML VIAL/SYR IV SCH ×2 (11:04→22:31)
[2021-12-02] MEDS: ENOXAPARIN SOD 40 MG/0.4 ML SYRINGE SC SCH (11:05)
[2021-12-02 13:00] VITALS: BP 110/71
[2021-12-02 16:49] VITALS: BP 114/69
[2021-12-02] MEDS: ALBUTEROL SULF 2.5 MG/0.5ML(0.5%) NEB SOLN NEB PRN (18:41)
[2021-12-02] MEDS: IPRATROPIUM BROM 0.5 MG/2.5ML INH SOL NEB PRN (18:42)
[2021-12-02] MEDS: TPN PER PHARMACY IV NR ×10 (19:40)
[2021-12-02] MEDS ORDERED: TPN PER PHARMACY IV NR ×12 (20:00)
[2021-12-02 20:40] VITALS: BP 114/69
[2021-12-02 22:00] VITALS: BP 100/44
[2021-12-03] MEDS: ACCU-CHEK COMFORT CURVE STRIP VI SCH ×2 (00:15→06:22)
[2021-12-03] MEDS: InsuLIN REG 1unit/0.01ml Soln (100units/ml) SC SCH ×2 (00:18→06:22)
[2021-12-03] MEDS: PIPERACILLIN-TAZOB 2.25GM 50 ML IV SCH ×4 (01:47→20:00)
[2021-12-03 05:00] VITALS: BP 100/54
[2021-12-03] MEDS: METOCLOPRAMIDE HCL 5MG/ml INJ 2ml VIAL IV SCH ×3 (06:22→20:58)
[2021-12-03 07:37] LABS: Potassium 4.9 mmol/L (3.5-5.1)
[2021-12-03 07:53] LABS: Albumin 1.4 g/dL (3.4-5.0); BUN/Creatinine Ratio 59.2; Bilirubin, Total 0.6 mg/dL (0.2-1.0); Calcium 8.8 mg/dL (8.5-10.1); Magnesium 2.7 mg/dL (1.6-2.6); Phosphorus 4.1 mg/dL (2.5-4.90); Total Protein 6.2 g/dL (6.4-8.2)
[2021-12-03 08:00] VITALS: BP 96/55
[2021-12-03] MEDS: BUDESONIDE (INHALATION) 0.5 MG/2 ML NEB NEB SCH ×2 (09:09→22:35)
[2021-12-03] MEDS: ENOXAPARIN SOD 40 MG/0.4 ML SYRINGE SC SCH (09:16)
[2021-12-03] MEDS: FLUCONAZOLE 200MG/100ML 100 ML IV SCH ×2 (09:16→13:14)
[2021-12-03] MEDS: SODIUM CHLOR 0.9% PF (SALINE LOCK) 10ML VIAL/SYR IV SCH ×2 (10:00→20:58)
[2021-12-03 12:00] VITALS: BP 108/55
[2021-12-03 16:00] VITALS: BP 100/51
[2021-12-03] MEDS ORDERED: TPN PER PHARMACY IV NR ×11 (20:00)
[2021-12-03 22:00] VITALS: BP 112/72
[2021-12-03] MEDS: IPRATROPIUM BROM 0.5 MG/2.5ML INH SOL NEB PRN (22:35)
[2021-12-04] MEDS: PIPERACILLIN-TAZOB 2.25GM 50 ML IV SCH ×2 (02:17→08:02)
[2021-12-04 04:37] LABS: Basophils # (auto) 0.1 10 ^3/uL (0-0.2); Basophils % (auto) 1.1 % (0.0-2.0); Eosinophils # (auto) 0.1 10 ^3/uL (0-0.8); Eosinophils % (auto) 1.3 % (0.0-7.0); Hematocrit 32.1 % (36.0-46.0); Hemoglobin 10.8 g/dL (12.2-16.2); Lymphocytes # (auto) 0.8 10 ^3/uL (0.4-5.4); Mean Corpuscular Hemoglobin 31.9 pg (28.0-32.0); Mean Corpuscular Hgb Conc. 33.7 g/dL (32.0-36.0); Mean Corpuscular Volume 94.7 fL (80.0-100.0); Monocytes # (auto) 0.5 10 ^3/uL (0-1.3); Monocytes % (auto) 8.5 % (0.0-12.0); Neutrophils % (auto) 74.1 % (37.0-80.0); Red Blood Cells 3.39 10^6/uL (4.0-5.20); Red Cell Distribution Width 16.7 % (11.8-14.3); White Blood Cell 5.4 10^3/uL (4.4-10.8)
[2021-12-04 04:58] LABS: INR 1.01 (0.9-1.15); Partial Thromboplastin Time 23.7 sec (23.6-33.0)
[2021-12-04 05:00] VITALS: BP 112/63
[2021-12-04] MEDS: METOCLOPRAMIDE HCL 5MG/ml INJ 2ml VIAL IV SCH ×3 (05:55→20:59)
[2021-12-04 09:00] VITALS: BP 104/67
[2021-12-04] MEDS: SODIUM CHLOR 0.9% PF (SALINE LOCK) 10ML VIAL/SYR IV SCH ×2 (09:19→20:59)
[2021-12-04] MEDS: FLUCONAZOLE 200MG/100ML 100 ML IV SCH ×2 (10:28→11:34)
[2021-12-04] MEDS: ENOXAPARIN SOD 40 MG/0.4 ML SYRINGE SC SCH (10:28)
[2021-12-04] MEDS: BUDESONIDE (INHALATION) 0.5 MG/2 ML NEB NEB SCH ×2 (10:29→18:55)
[2021-12-04] MEDS ORDERED: Jevity 1.2 Cal/Fiber 1 Liter GT SCH (10:30)
[2021-12-04 13:00] VITALS: BP 84/51
[2021-12-04 13:44] VITALS: BP 94/64
[2021-12-04 17:00] VITALS: BP 102/67
[2021-12-04 22:00] VITALS: BP 109/50
[2021-12-05 05:00] VITALS: BP 111/61
[2021-12-05] MEDS: METOCLOPRAMIDE HCL 5MG/ml INJ 2ml VIAL IV SCH ×3 (06:03→21:12)
[2021-12-05] MEDS: ALBUTEROL SULF 2.5 MG/0.5ML(0.5%) NEB SOLN NEB PRN ×2 (06:13→21:32)
[2021-12-05] MEDS: BUDESONIDE (INHALATION) 0.5 MG/2 ML NEB NEB SCH ×2 (06:13→21:33)
[2021-12-05] MEDS: IPRATROPIUM BROM 0.5 MG/2.5ML INH SOL NEB PRN ×2 (06:13→21:32)
[2021-12-05] MEDS: ENOXAPARIN SOD 40 MG/0.4 ML SYRINGE SC SCH (07:34)
[2021-12-05] MEDS: SODIUM CHLOR 0.9% PF (SALINE LOCK) 10ML VIAL/SYR IV SCH ×2 (08:14→21:13)
[2021-12-05] MEDS: FLUCONAZOLE 200MG/100ML 100 ML IV SCH ×2 (08:14→10:55)
[2021-12-05] MEDS ORDERED: SODIUM CHLORIDE LOCK 10 ML ONE (08:53)
[2021-12-05] MEDS ORDERED: fentaNYL CITRATE 100 MCG/2 ML VL ONE (08:54)
[2021-12-05] MEDS ORDERED: diphenhdrAMINE HCL 50 MG/1 ML VL ONE (08:54)
[2021-12-05] MEDS: MIDAZOLAM HCL 5 MG/ML-1ML VIAL ONE ×2 (09:07→09:11)
[2021-12-05] MEDS ORDERED: ceFAZolin 1GM/50ML 50 ML IV ONE ×2 (09:17→09:20)
[2021-12-05] MEDS ORDERED: levoFLOXacin 500MG 100 ML IV ONE (10:00)
[2021-12-05] MEDS: PANTOPRAZOLE 40 MG/10 ML VIAL INJ IV SCH ×2 (12:18→21:12)
[2021-12-05 12:32] VITALS: BP 98/57
[2021-12-05] MEDS: D5W/SOD CHL 0.45% 1,000 ML IV SCH (15:13)
[2021-12-05 17:00] VITALS: BP 93/52
[2021-12-05 20:30] VITALS: BP 91/50
[2021-12-05 22:00] VITALS: BP 91/50
[2021-12-06] MEDS: D5W/SOD CHL 0.45% 1,000 ML IV SCH (02:48)
[2021-12-06 05:00] VITALS: BP 92/56
[2021-12-06] MEDS: METOCLOPRAMIDE HCL 5MG/ml INJ 2ml VIAL IV SCH ×3 (05:38→21:37)
[2021-12-06] MEDS: ALBUTEROL SULF 2.5 MG/0.5ML(0.5%) NEB SOLN NEB PRN (06:49)
[2021-12-06] MEDS: BUDESONIDE (INHALATION) 0.5 MG/2 ML NEB NEB SCH ×2 (06:49→21:31)
[2021-12-06] MEDS: IPRATROPIUM BROM 0.5 MG/2.5ML INH SOL NEB PRN (06:49)
[2021-12-06] MEDS: FLUCONAZOLE 200MG/100ML 100 ML IV SCH ×2 (07:47→09:02)
[2021-12-06] MEDS: levoFLOXacin 250MG 50 ML IV SCH (07:48)
[2021-12-06] MEDS: SODIUM CHLOR 0.9% PF (SALINE LOCK) 10ML VIAL/SYR IV SCH ×2 (07:49→21:37)
[2021-12-06] MEDS: PANTOPRAZOLE 40 MG/10 ML VIAL INJ IV SCH ×2 (07:49→21:37)
[2021-12-06] MEDS: ENOXAPARIN SOD 40 MG/0.4 ML SYRINGE SC SCH (07:50)
[2021-12-06 08:20] LABS: Basophils # (auto) 0 10 ^3/uL (0-0.2); Basophils % (auto) 0.7 % (0.0-2.0); Eosinophils # (auto) 0 10 ^3/uL (0-0.8); Eosinophils % (auto) 0.6 % (0.0-7.0); Hematocrit 33.5 % (36.0-46.0); Hemoglobin 11.1 g/dL (12.2-16.2); Lymphocytes # (auto) 0.6 10 ^3/uL (0.4-5.4); Lymphocytes % (auto) 10.1 % (10.0-50.0); Mean Corpuscular Hemoglobin 32.1 pg (28.0-32.0); Mean Corpuscular Hgb Conc. 33.3 g/dL (32.0-36.0); Mean Corpuscular Volume 96.5 fL (80.0-100.0); Monocytes # (auto) 0.5 10 ^3/uL (0-1.3); Neutrophils # (auto) 4.6 10 ^3/uL (1.6-8.6); Neutrophils % (auto) 80.6 % (37.0-80.0); Red Blood Cells 3.47 10^6/uL (4.0-5.20); Red Cell Distribution Width 16.8 % (11.8-14.3); White Blood Cell 5.7 10^3/uL (4.4-10.8)
[2021-12-06 08:53] LABS: BUN/Creatinine Ratio 27.1; Calcium 8.8 mg/dL (8.5-10.1)
[2021-12-06 09:00] VITALS: BP 113/68
[2021-12-06 09:14] LABS: Potassium 2.9 mmol/L (3.5-5.1)
[2021-12-06 13:00] VITALS: BP 125/70
[2021-12-06] MEDS ORDERED: Glucerna 1.2 Cal 1Liter BOTTLE GT SCH (13:30)
[2021-12-06] MEDS: POTASSIUM CHL 20MEQ/100ML 100 ML IV SCH ×3 (14:06→15:59)
[2021-12-06 17:00] VITALS: BP 111/63
[2021-12-06 22:00] VITALS: BP 116/72
[2021-12-07 05:00] VITALS: BP 114/68
[2021-12-07] MEDS: METOCLOPRAMIDE HCL 5MG/ml INJ 2ml VIAL IV SCH ×3 (05:48→21:26)
[2021-12-07] MEDS: FLUCONAZOLE 200MG/100ML 100 ML IV SCH ×2 (08:13→12:20)
[2021-12-07] MEDS: SODIUM CHLOR 0.9% PF (SALINE LOCK) 10ML VIAL/SYR IV SCH ×2 (08:14→21:29)
[2021-12-07] MEDS: PANTOPRAZOLE 40 MG/10 ML VIAL INJ IV SCH ×2 (08:14→21:26)
[2021-12-07] MEDS: ENOXAPARIN SOD 40 MG/0.4 ML SYRINGE SC SCH (08:15)
[2021-12-07 09:00] VITALS: BP 93/59
[2021-12-07] MEDS: levoFLOXacin 250MG 50 ML IV SCH ×2 (10:12→12:21)
[2021-12-07] MEDS: BUDESONIDE (INHALATION) 0.5 MG/2 ML NEB NEB SCH ×2 (10:38→18:48)
[2021-12-07 13:00] VITALS: BP 129/73
[2021-12-07 17:00] VITALS: BP 103/74
[2021-12-07] MEDS: IPRATROPIUM BROM 0.5 MG/2.5ML INH SOL NEB PRN (18:48)
[2021-12-07] MEDS: ALBUTEROL SULF 2.5 MG/0.5ML(0.5%) NEB SOLN NEB PRN (18:48)
[2021-12-07 22:00] VITALS: BP 100/56
[2021-12-08 05:00] VITALS: BP 94/60
[2021-12-08] MEDS: METOCLOPRAMIDE HCL 5MG/ml INJ 2ml VIAL IV SCH ×3 (05:25→23:59)
[2021-12-08] MEDS: ALBUTEROL SULF 2.5 MG/0.5ML(0.5%) NEB SOLN NEB PRN ×2 (07:07→18:34)
[2021-12-08] MEDS: BUDESONIDE (INHALATION) 0.5 MG/2 ML NEB NEB SCH ×2 (07:07→18:35)
[2021-12-08] MEDS: IPRATROPIUM BROM 0.5 MG/2.5ML INH SOL NEB PRN ×2 (07:07→18:34)
[2021-12-08 07:21] LABS: Potassium 3.7 mmol/L (3.5-5.1)
[2021-12-08 07:25] LABS: BUN/Creatinine Ratio 24.1; Calcium 8.8 mg/dL (8.5-10.1)
[2021-12-08] MEDS: FLUCONAZOLE 200MG/100ML 100 ML IV SCH ×2 (07:57→09:39)
[2021-12-08] MEDS: SODIUM CHLOR 0.9% PF (SALINE LOCK) 10ML VIAL/SYR IV SCH ×2 (07:58→23:59)
[2021-12-08] MEDS: ENOXAPARIN SOD 40 MG/0.4 ML SYRINGE SC SCH (07:58)
[2021-12-08] MEDS: PANTOPRAZOLE 40 MG/10 ML VIAL INJ IV SCH (07:58)
[2021-12-08 09:00] VITALS: BP 101/54
[2021-12-08] MEDS ORDERED: POLYETHYLENE GLYCOL 17 GM PWDR PO ONE (12:00)
[2021-12-08 13:00] VITALS: BP 100/59
[2021-12-08 17:00] VITALS: BP 101/38
[2021-12-08 21:45] VITALS: BP 109/64
[2021-12-09 00:27] VITALS: BP 109/64
[2021-12-09 05:05] VITALS: BP 100/50
[2021-12-09] MEDS: METOCLOPRAMIDE HCL 5MG/ml INJ 2ml VIAL IV SCH ×3 (05:37→21:10)
[2021-12-09 09:00] VITALS: BP 98/71
[2021-12-09] MEDS: SODIUM CHLOR 0.9% PF (SALINE LOCK) 10ML VIAL/SYR IV SCH ×2 (09:28→21:10)
[2021-12-09] MEDS: ENOXAPARIN SOD 40 MG/0.4 ML SYRINGE SC SCH (09:29)
[2021-12-09] MEDS: POLYETHYLENE GLYCOL 17 GM PWDR PO SCH (09:29)
[2021-12-09] MEDS ORDERED: levoFLOXacin 250 MG TAB PO SCH (10:00)
[2021-12-09] MEDS: BUDESONIDE (INHALATION) 0.5 MG/2 ML NEB NEB SCH ×2 (10:30→19:02)
[2021-12-09] MEDS ORDERED: cefTRIAXone 1GM/50ML D5W 50 ML IV ONE (10:45)
[2021-12-09 13:29] LABS: Urine Bacteria NONE SEEN /hpf (None Seen); Urine Blood Negative /uL (Negative); Urine Mucus FEW (None Seen); Urine Specific Gravity 1.019 (1.001-1.035); Urine WBC 2 /hpf (0 - 5)
[2021-12-09 17:00] VITALS: BP 117/62
[2021-12-09] MEDS: ALBUTEROL SULF 2.5 MG/0.5ML(0.5%) NEB SOLN NEB PRN (19:02)
[2021-12-09] MEDS: IPRATROPIUM BROM 0.5 MG/2.5ML INH SOL NEB PRN (19:02)
[2021-12-09 21:00] VITALS: BP 119/59
[2021-12-09] MEDS: FAMOTIDINE 20 MG TAB PO SCH ×2 (21:11)
[2021-12-10 05:00] VITALS: BP 109/62
[2021-12-10] MEDS: METOCLOPRAMIDE HCL 5MG/ml INJ 2ml VIAL IV SCH (05:34)
[2021-12-10 07:37] LABS: Basophils # (auto) 0 10 ^3/uL (0-0.2); Basophils % (auto) 0.7 % (0.0-2.0); Eosinophils # (auto) 0 10 ^3/uL (0-0.8); Eosinophils % (auto) 0.5 % (0.0-7.0); Hematocrit 30.9 % (36.0-46.0); Hemoglobin 10.6 g/dL (12.2-16.2); Lymphocytes # (auto) 0.8 10 ^3/uL (0.4-5.4); Lymphocytes % (auto) 13.4 % (10.0-50.0); Mean Corpuscular Hemoglobin 32.5 pg (28.0-32.0); Mean Corpuscular Hgb Conc. 34.3 g/dL (32.0-36.0); Mean Corpuscular Volume 94.9 fL (80.0-100.0); Monocytes # (auto) 0.7 10 ^3/uL (0-1.3); Monocytes % (auto) 10.8 % (0.0-12.0); Neutrophils # (auto) 4.7 10 ^3/uL (1.6-8.6); Neutrophils % (auto) 74.6 % (37.0-80.0); Nucleated Red Blood Cells % 0.2 %; Red Blood Cells 3.26 10^6/uL (4.0-5.20); Red Cell Distribution Width 16.7 % (11.8-14.3); White Blood Cell 6.3 10^3/uL (4.4-10.8)
[2021-12-10 07:53] LABS: Albumin 1.4 g/dL (3.4-5.0); Calcium 8.8 mg/dL (8.5-10.1); Potassium 4.2 mmol/L (3.5-5.1)
[2021-12-10 07:56] LABS: BUN/Creatinine Ratio 27.8; Bilirubin, Total 0.6 mg/dL (0.2-1.0); Total Protein 6.1 g/dL (6.4-8.2)
[2021-12-10] MEDS: cefTRIAXone 1GM/50ML D5W 50 ML IV SCH (08:44)
[2021-12-10 08:55] VITALS: BP 110/61
[2021-12-10] MEDS: ENOXAPARIN SOD 40 MG/0.4 ML SYRINGE SC SCH (09:09)
[2021-12-10] MEDS: POLYETHYLENE GLYCOL 17 GM PWDR PO SCH (09:09)
[2021-12-10] MEDS: SODIUM CHLOR 0.9% PF (SALINE LOCK) 10ML VIAL/SYR IV SCH ×2 (09:10→20:57)
[2021-12-10] MEDS: BUDESONIDE (INHALATION) 0.5 MG/2 ML NEB NEB SCH ×2 (11:32→19:14)
[2021-12-10] MEDS: ALBUTEROL SULF 2.5 MG/0.5ML(0.5%) NEB SOLN NEB PRN ×2 (11:32→19:14)
[2021-12-10] MEDS: IPRATROPIUM BROM 0.5 MG/2.5ML INH SOL NEB PRN ×2 (11:32→19:14)
[2021-12-10 12:36] VITALS: BP 110/72
[2021-12-10 17:00] VITALS: BP 109/57
[2021-12-10 17:26] VITALS: BP 110/72
[2021-12-10 21:21] VITALS: BP 105/54
[2021-12-11 05:11] VITALS: BP 123/77
[2021-12-11] MEDS: cefTRIAXone 1GM/50ML D5W 50 ML IV SCH (08:18)
[2021-12-11 08:31] VITALS: BP 109/73
[2021-12-11] MEDS: SODIUM CHLOR 0.9% PF (SALINE LOCK) 10ML VIAL/SYR IV SCH (10:00)
[2021-12-11] MEDS: BUDESONIDE (INHALATION) 0.5 MG/2 ML NEB NEB SCH (10:31)
[2021-12-11] MEDS ORDERED: PANT40TA2 PO (11:19)
[2021-12-11] MEDS ORDERED: CEFU500T43 PO (11:19)
[2021-12-11 13:02] VITALS: BP 122/62
[2021-12-11 14:35] VITALS: BP 122/62
== END 2021-12-11 16:40 | disposition home health service (06) | DRG 870 ==
LOC: ER 17:38 → EDBD 17:38 → TELE 21:10 → ICU CENTRL 11-20 02:30 → TELE-CENTR 11-30 15:17
PROVIDERS: ADMIT Nurse Practitioner; ATTEND Internal Medicine
PROC: 5A1955Z Respiratory Ventilation, Greater than 96 Consecutive Hours (ICD-10-PCS; 2021-11-19)
PROC: 0BH17EZ Insertion of Endotracheal Airway into Trachea, Via Natural or Artificial Opening (ICD-10-PCS; 2021-11-19)
PROC: 3E0G76Z Introduction of Nutritional Substance into Upper GI, Via Natural or Artificial Opening (ICD-10-PCS; 2021-11-19)
PROC: 02HV33Z Insertion of Infusion Device into Superior Vena Cava, Percutaneous Approach (ICD-10-PCS; principal; 2021-11-25)
PROC: 0DB68ZX Excision of Stomach, Via Natural or Artificial Opening Endoscopic, Diagnostic (ICD-10-PCS; 2021-12-05)
PROC: 0DH63UZ Insertion of Feeding Device into Stomach, Percutaneous Approach (ICD-10-PCS; 2021-12-05)
DX: A41.9 Sepsis, unspecified organism (principal); R65.21 Severe sepsis with septic shock; G93.41 Metabolic encephalopathy; I21.4 Non-ST elevation (NSTEMI) myocardial infarction; J96.00 Acute respiratory failure, unspecified whether with hypoxia or hypercapnia; N17.0 Acute kidney failure with tubular necrosis; E43 Unspecified severe protein-calorie malnutrition; K56.7 Ileus, unspecified; E87.0 Hyperosmolality and hypernatremia; E87.1 Hypo-osmolality and hyponatremia; Z68.1 Body mass index [BMI] 19.9 or less, adult; Z66 Do not resuscitate; F03.90 Unspecified dementia, unspecified severity, without behavioral disturbance, psychotic disturbance, mood disturbance, and anxiety; E78.5 Hyperlipidemia, unspecified; E11.65 Type 2 diabetes mellitus with hyperglycemia; I48.0 Paroxysmal atrial fibrillation; Z20.822 Contact with and (suspected) exposure to COVID-19; E87.6 Hypokalemia; K29.70 Gastritis, unspecified, without bleeding; R13.10 Dysphagia, unspecified; I10 Essential (primary) hypertension; I25.10 Atherosclerotic heart disease of native coronary artery without angina pectoris; E11.9 Type 2 diabetes mellitus without complications; Z79.899 Other long term (current) drug therapy; Z86.718 Personal history of other venous thrombosis and embolism
CPT/HCPCS: 31500; 36415; 36556; 36569; 36600; 70450; 71045; 74018; 74176; 74250; 80048; 80053; 80061; 80162; 81001; 82607; 82746; 82805; 82962; 83036; 83605; 83735; 83880; 84100; 84132; 84443; 84478; 84484; 85025; 85610; 85730; 87040; 87070; 87077; 87081; 87086; 87205; 87804; 93005; 93306; 94002; 94003; 94640; 96365; 96366; 96367; 96375; 96376; 97110; 97116; 97163; 97530; 99291; C9113; G0378; J0330; J0690; J0696; J1450; J1815; J1956; J2250; J2543; J3480; J7060; J7131